=== PATIENT | male | born 1950 | race Caucasian/White ===

== ENCOUNTER 2021-11-14 05:43 | Observation (INO) | payer MEDICARE ==
[2021-11-12 09:05] VITALS: BP 195/97
[2021-11-12 10:37] LABS: BASOPHILS % (AUTO) 0.7 % (0.0-5.0); LYMPHOCYTES % (AUTO) 25.7 % (21.0-51.0); MEAN CORPUSCULAR HEMOGLOBIN 31.9 pg (27.0-33.0); MEAN CORPUSCULAR HGB CONC 32.9 g/dL (32.0-36.0); MONOCYTES % (AUTO) 11.3 % (3.0-13.0); NEUTROPHILS % (AUTO) 60.1 % (40.0-77.0); PLATELET COUNT (AUTO) 257 K/uL (130-400); RED BLOOD CELL COUNT(AUTO) 4.33 MIL/uL (4.50-6.20); RED CELL DISTRIBUTION WIDTH 13.1 % (11.0-15.5); WHITE BLOOD COUNT (AUTO) 8.1 K/uL (4.8-10.8)
[2021-11-12 11:21] LABS: CREATININE 0.9 mg/dL (0.5-1.5); POTASSIUM 4.8 mmol/L (3.5-5.1)
[2021-11-14] VITALS (26 sets, daily range): BP systolic 64–177; BP diastolic 60–96
[~2021-11-14] VITALS: Ht 180.3 cm; Wt 111.0 kg
[~2021-11-14 05:43] MED LIST: ASPI-1443 PO; METO25TA6 PO; RIVA2.5T PO; ROSU20TA31 PO; SPIR25TA6 PO; TERA2CAP4 PO; VALS160T29 PO
[2021-11-14] MEDS ORDERED: LACTATED RINGERS 1000ML 1,000 ML IV ONE (06:26)
[2021-11-14 06:47] LABS: CREATININE 0.9 mg/dL (0.5-1.5); POTASSIUM 4.7 mmol/L (3.5-5.1)
[2021-11-14] MEDS ORDERED: BUPIVACAINE/EPI/PF 0.5% 30ML VIAL IJ ONE (06:47)
[2021-11-14] MEDS ORDERED: MORPHINE PF 100MG/10ML AMP IV ONE (06:47)
[2021-11-14] MEDS ORDERED: CEFAZOLIN SODIUM 1 GM VIAL ONE (06:47)
[2021-11-14] MEDS ORDERED: THROMBIN-JMI 20000 UNIT KIT TP ONE (06:47)
[2021-11-14] MEDS: CEFAZOLIN SODIUM 1 GM VIAL ONE ×2 (07:11→08:00)
[2021-11-14] MEDS ORDERED: MIDAZOLAM HCL 1 MG/ML 2ML VIAL ONE (07:22)
[2021-11-14] MEDS ORDERED: PROPOFOL 10 MG/ML 20ML VIAL IV ONE ×2 (07:22→11:09)
[2021-11-14] MEDS ORDERED: FENTANYL CITRATE PF 50 MCG/1 ML 2ML VIAL ONE ×3 (07:22→10:57)
[2021-11-14] MEDS ORDERED: DEXMEDETOMIDINE HCL 200 MCG/2 ML VIAL IV ONE (07:33)
[2021-11-14] MEDS ORDERED: ROCURONIUM 10MG/1ML SYR 10 MG/ML ML ONE ×2 (07:35→08:09)
[2021-11-14] MEDS ORDERED: DEXAMETHASONE SOD PHOSPHATE 10MG/ML 1ML VIAL ONE (08:26)
[2021-11-14] MEDS ORDERED: ARTIFICIAL TEARS 3.5 GM OINTMENT ONE (08:35)
[2021-11-14] MEDS ORDERED: EPHEDRINE SULFATE 50 MG/ML AMPULE ONE (08:44)
[2021-11-14] MEDS ORDERED: ONDANSETRON 4MG INJ ONE (11:06)
[2021-11-14] MEDS ORDERED: GLYCOPYRROLATE 1 MG/5 ML SYRINGE ONE (11:06)
[2021-11-14] MEDS ORDERED: NEOSTIGMINE 5MG/5ML SYR IV ONE (11:06)
[2021-11-14] MEDS: CEFAZOLIN SODIUM 1 GM VIAL IVP SCH ×2 (11:30→16:32)
[2021-11-14] MEDS: DEXAMETHASONE SOD PHOSPHATE 4 MG/ML 1ML VIAL IVP SCH ×3 (11:30→23:40)
[2021-11-14] MEDS ORDERED: 0.9%NACL 10ML VIAL IVP PRN (11:30)
[2021-11-14] MEDS: LACTATED RINGERS 1000ML 1,000 ML IV SCH ×2 (11:30→23:40)
[2021-11-14] MEDS ORDERED: PROMETHAZINE HCL 25 MG/ML 1ML AMPULE IM PRN (11:30)
[2021-11-14] MEDS: HYDROCODONE/ACETAMINOPHEN 5/325 MG TAB PO PRN ×2 (16:34→21:05)
[2021-11-14] MEDS ORDERED: LABETALOL 20MG SYG IV ONE (17:30)
[2021-11-14] MEDS ORDERED: LABETALOL 20MG VIAL IV PRN (17:30)
[2021-11-14] MEDS ORDERED: HYDRALAZINE 20MG/ML VIAL IV PRN (17:30)
[2021-11-14] MEDS ORDERED: LABETALOL 20MG SYG IV PRN (18:00)
[2021-11-14] MEDS ORDERED: TERAZOSIN 2 MG CAPSULE PO SCH (21:00)
[2021-11-14] MEDS: METOPROLOL TARTRATE 25 MG TAB PO SCH (21:02)
[2021-11-14] MEDS: MORPHINE 2 MG SYG IVP PRN (21:50)
[2021-11-15] VITALS: BP 142/77
[2021-11-15 04:00] VITALS: BP 151/87
[2021-11-15] MEDS: CEFAZOLIN SODIUM 1 GM VIAL IVP SCH (04:32)
[2021-11-15] MEDS: LACTATED RINGERS 1000ML 1,000 ML IV SCH (04:32)
[2021-11-15] MEDS: DEXAMETHASONE SOD PHOSPHATE 4 MG/ML 1ML VIAL IVP SCH (04:36)
[2021-11-15] MEDS: HYDROCODONE/ACETAMINOPHEN 5/325 MG TAB PO PRN ×2 (04:59→11:28)
[2021-11-15] MEDS: MORPHINE 2 MG SYG IVP PRN (05:04)
[2021-11-15 07:20] VITALS: BP 156/82
[2021-11-15] MEDS: METOPROLOL TARTRATE 25 MG TAB PO SCH (08:27)
[2021-11-15] MEDS ORDERED: SPIRONOLACTONE 25 MG TAB PO SCH (09:00)
[2021-11-15] MEDS ORDERED: LOSARTAN 100 MG TABLET PO SCH (09:00)
[2021-11-15] MEDS ORDERED: ASPIRIN 81 MG EC TAB PO SCH (09:00)
[2021-11-15] MEDS ORDERED: ATORVASTATIN 40 MG TABLET PO SCH (09:00)
== END 2021-11-15 11:30 | disposition home or self-care (01) ==
LOC: DAHIP 05:43 → EDSTATUS 07:30 → 4CH 12:36
PROVIDERS: ADMIT Neurological Surgery; ATTEND Neurological Surgery
DX: M48.061 Spinal stenosis, lumbar region without neurogenic claudication (principal); Z20.822 Contact with and (suspected) exposure to COVID-19; I73.9 Peripheral vascular disease, unspecified; I10 Essential (primary) hypertension; E78.5 Hyperlipidemia, unspecified; E66.01 Morbid (severe) obesity due to excess calories; M47.9 Spondylosis, unspecified; Z79.82 Long term (current) use of aspirin; Z95.1 Presence of aortocoronary bypass graft; Z79.899 Other long term (current) drug therapy
CPT/HCPCS: 36415 ×2; 63047; 63048 ×2; 71045; 72020; 80048 ×2; 85025; 87635; 96374; 96375; 96376 ×2; A4213; A4215; A4221; A4222; A4223 ×2; A4344; A4510; A4600; A4649 ×2; A4663; A6260; C9803; G0378 ×23; J0690 ×4; J1100 ×4; J2250; J2274; J2405; J2704; J2710; J3010 ×3; J3490 ×4; J7040; J7120 ×4